=== PATIENT | female | born 1980 | race Two or more races ===

== ENCOUNTER 2023-01-22 18:13 | Emergency (ER) | payer BC ==
[~2023-01-22] VITALS: Ht 177.8 cm; Wt 83.9 kg
[2023-01-22 18:22] VITALS: BP 125/76
[2023-01-22] MEDS ORDERED: CARI350T PO (18:29)
--- NOTE | 2023-01-22 18:33 | NUR ---
Patient discharged to home in stable condition. Written and verbal after care instructions given. Patient verbalizes understanding of instruction.
== END 2023-01-22 18:37 | disposition home or self-care (01) ==
LOC: ER 18:28
DX: M54.9 Dorsalgia, unspecified (principal)